=== PATIENT | male | born 2000 | race Caucasian/White ===

== ENCOUNTER 2024-03-26 13:23 | Emergency (ER) | payer SELFPAY ==
[~2024-03-26] VITALS: Ht 170.2 cm; Wt 82.0 kg
[2024-03-26 13:25] VITALS: TEMP 98.2; O2SAT 95
[2024-03-26] MEDS: KETOROLAC 15MG/ML VIAL IM ONE (16:46)
[2024-03-26] MEDS ORDERED: NAPR-681 MT (16:48)
[2024-03-26 16:56] VITALS: BP 128/66; PULSE 56; RESP 20
[2024-03-26] MEDS ORDERED: IOHEXOL-300 100 ML BOTTLE ONE (22:21)
== END 2024-03-26 16:59 | disposition home or self-care (01) ==
LOC: ER 14:22
DX: S80.812A Abrasion, left lower leg, initial encounter (principal); S60.512A Abrasion of left hand, initial encounter; V98.8XXA Other specified transport accidents, initial encounter; Y93.89 Activity, other specified; Y92.89 Other specified places as the place of occurrence of the external cause; Y99.8 Other external cause status
CPT/HCPCS: 73130; 73562; 73590; 70450; 71260; 72125; 74177; 96372; 99285; Q9967; J1885; Z7610

== ENCOUNTER 2025-05-27 10:45 | Emergency (ER) | payer MEDICAID, OTHER ==
[~2025-05-27] VITALS: Ht 172.7 cm; Wt 72.0 kg
[~2025-05-27 10:45] MED LIST: NAPR-681 MT
[2025-05-27 10:48] VITALS: O2SAT 99
[2025-05-27] MEDS: IBUPROFEN 600MG TABLET PO ONE (11:35)
[2025-05-27 11:46] VITALS: BP 132/76; PULSE 55; RESP 14; TEMP 36.7; O2SAT 99
== END 2025-05-27 11:47 | disposition home or self-care (01) ==
LOC: ER 10:45
DX: R07.89 Other chest pain (principal); R20.2 Paresthesia of skin; I10 Essential (primary) hypertension; Z79.899 Other long term (current) drug therapy; Z79.1 Long term (current) use of non-steroidal anti-inflammatories (NSAID)
CPT/HCPCS: 71045; 76604; 93005; 93880; 99284